=== PATIENT | female | born 1975 | race African-American/Black ===

== ENCOUNTER 2022-07-23 05:29 | Day surgery (SDC) | payer BC ==
[2022-07-18 10:58] LABS: #Eosinphils 0.1 10x3/uL (0.0-0.5); #Monocytes 0.5 10x3/uL (0.0-1.1); #Neutrophils 3.5 10x3/uL (1.5-8.4); %Basophils 0.6 % (0.0-2.0); %Eosinophils 1.6 % (0.0-6.0); %Lymphocytes 38.3 % (18.0-47.0); %Monocytes 7.5 % (0.0-10.0); %Neutrophils 51.7 % (40.0-75.0); Mean Corpuscular HGB CONC 33.5 g/dL (32.0-36.0); Mean Corpuscular Hemoglobin 32.9 pg (27.0-33.0); Mean Corpuscular Volume 98.2 fl (81.6-98.3); Mean Platelet Volume 9.2 fl (7.4-10.4); Platelet Count 316 10x3/uL (150-450); RBC Distribution Width 12.9 % (11.5-14.5); Red Blood Cell (RBC) Count 3.34 10x6/uL (3.90-5.03); White Blood Cell (WBC) Count 6.8 10x3/uL (3.5-10.5)
[2022-07-18 11:11] LABS: INR-International Normal Ratio 0.9; PTT 27.8 sec (22.0-33.0); Prothrombin Time 10.1 sec (9.5-12.1)
[2022-07-18 11:12] LABS: BHCG - Serum Negative (NEGATIVE); Pregs Control Background? CLEAR/WHITE (CLR/WHITE); Pregs Control Bar Appear? YES (CONTROL BAR)
[2022-07-18 11:25] LABS: ALT (SGPT) 16 U/L (8-55); AST (SGOT) 16 U/L (5-34); Albumin 4.1 g/dL (3.5-5.0); Alkaline Phosphatase 76 U/L (40-110); Anion Gap 16 mmol/L (10-20); BUN (Urea Nitrogen) 24 mg/dL (7.0-18.7); Bilirubin, Total 0.4 mg/dL (0.2-1.2); Calc. Creatinine Clearance 0 mL/min (70-130); Calcium 8.8 mg/dL (7.8-10.44); Carbon Dioxide 26 mmol/L (22-29); Chloride 104 mmol/L (98-107); Estimated GFR 9; Globulin 3.4 g/dL (2.4-3.5); Glucose 91 mg/dL (70-105); Potassium 4.1 mmol/L (3.5-5.1); Protein, Total 7.5 g/dL (6.0-8.3); Sodium 142 mmol/L (136-145)
[2022-07-22 10:01] VITALS: BMI 42.9
[2022-07-23] MEDS ORDERED: Bupivacaine PF 0.5% 30 ML VIAL ONE (06:38)
[2022-07-23] MEDS ORDERED: EPINEPHrine 1 MG/ML AMP ONE (06:38)
[2022-07-23] MEDS ORDERED: CeleCOXIB 100 MG CAP ONE (06:49)
[2022-07-23] MEDS ORDERED: Famotidine/PF 20 mg/2ml Vial ONE (06:50)
[2022-07-23 06:59] LABS: Potassium 3.9 mmol/L (3.5-5.1)
[2022-07-23] MEDS ORDERED: CEFAZOLIN 2 GM VIAL ONE (07:17)
[2022-07-23] MEDS ORDERED: PROPOFOL 20 ML ONE (07:30)
[2022-07-23] MEDS ORDERED: Fentanyl 100 MCG/2 ML VIAL ONE ×2 (07:30→10:10)
[2022-07-23] MEDS ORDERED: Lidocaine 1% PF 5 ML VIAL ONE (07:31)
[2022-07-23] MEDS ORDERED: Rocuronium Bromide 10 MG/ML (10ML VIAL) ONE (07:31)
[2022-07-23] MEDS ORDERED: Dexamethasone 4 mg/ml Vial ONE (07:50)
[2022-07-23] MEDS ORDERED: PHENYLEPHRINE-NS 100 MCG/ML 10 ML SYRINGE ONE (08:03)
[2022-07-23] MEDS ORDERED: Ondansetron PF 4 MG/2 ML Vial ONE (09:14)
[2022-07-23] MEDS ORDERED: Glycopyrrolate 0.2 MG/ML 5 ML SYRINGE ONE (09:18)
[2022-07-23] MEDS ORDERED: Ondansetron ODT 4 MG TAB ONE (12:31)
== END 2022-07-23 12:50 | disposition home or self-care (01) ==
LOC: CSHSDC 05:29
PROVIDERS: ATTEND Obstetrics & Gynecology
PROC: 0UT94ZZ Resection of Uterus, Percutaneous Endoscopic Approach (ICD-10-PCS; principal; 2022-07-23)
PROC: 0UB74ZZ Excision of Bilateral Fallopian Tubes, Percutaneous Endoscopic Approach (ICD-10-PCS; principal; 2022-07-23)
DX: N92.0 Excessive and frequent menstruation with regular cycle (principal); N80.03 Adenomyosis of the uterus; N87.0 Mild cervical dysplasia; N94.6 Dysmenorrhea, unspecified; N73.6 Female pelvic peritoneal adhesions (postinfective); I12.0 Hypertensive chronic kidney disease with stage 5 chronic kidney disease or end stage renal disease; N18.6 End stage renal disease; D63.1 Anemia in chronic kidney disease; E66.01 Morbid (severe) obesity due to excess calories; Z68.41 Body mass index [BMI] 40.0-44.9, adult; Z86.73 Personal history of transient ischemic attack (TIA), and cerebral infarction without residual deficits; Z99.2 Dependence on renal dialysis; Z79.82 Long term (current) use of aspirin; Z79.899 Other long term (current) drug therapy; Z98.890 Other specified postprocedural states
CPT/HCPCS: 80053; 84132; 84703; 85025; 85610; 85730; 86850; 86900; 86901; 88307; J0171; J1100; J2405; J2704; J3010; Q0162; S0020; S0028

== ENCOUNTER 2024-06-06 10:51 | Outpatient (CLI) | payer OTHER | END 2024-06-06 10:52 | disposition home or self-care (01) | LOC: CSHSLEEP 10:51 | PROVIDERS: ATTEND Internal Medicine | DX: G47.33 Obstructive sleep apnea (adult) (pediatric) (principal); R53.83 Other fatigue; E66.9 Obesity, unspecified; Z68.41 Body mass index [BMI] 40.0-44.9, adult; R06.83 Snoring | CPT/HCPCS: 95811 ==